=== PATIENT | female | born 1960 | race Caucasian/White ===

== ENCOUNTER 2022-07-22 05:54 | Emergency (ER) | payer OTHER ==
[~2022-07-22] VITALS: Ht 162.6 cm; Wt 102.1 kg
[2022-07-22 06:08] VITALS: BP_SYST 123
--- NOTE | 2022-07-22 06:12 | NUR ---
PT PLACED IN BED 01 & GOWN PROVIDED.
--- NOTE | 2022-07-22 06:13 | NUR ---
BIB FAMILY COMPLAINING OF 8/10 CHEST PAIN AND ABDOMINAL PAIN FOR THE PAST 4 DAYS. [id number]&[id number].[id number], NAD. AMBULATORY W/ STEADY GAIT.REPORT GIVEN TO JAMES GALAN.
--- NOTE | 2022-07-22 06:18 | NUR ---
PACHECO Purdy at bedside examining patient.
[2022-07-22] MEDS ORDERED: MORPHINE 4 MG INJ. 4 MG/ML VIAL IVP ONE ×2 (06:30→07:45)
[2022-07-22] MEDS ORDERED: KETOROLAC TROMETHAMINE 30 MG VIAL IVP ONE (06:30)
[2022-07-22] MEDS ORDERED: NACL 0.9% 1,000 ML IV ONE (06:30)
[2022-07-22] MEDS ORDERED: ONDANSETRON HCL 4 MG/2 ML VIAL IVP ONE (06:30)
[2022-07-22 06:50] LABS: BASOPHILS # (AUTO) 0.1 K/uL (0.0-0.2); BASOPHILS % (AUTO) 0.9 % (0.0-2.0); EOSINOPHILS # (AUTO) 0.4 K/uL (0.0-0.4); EOSINOPHILS % (AUTO) 3.5 % (0.0-4.0); HEMATOCRIT 33.3 % (36-48); HEMOGLOBIN 10.9 g/dL (12.0-16.0); LYMPHOCYTES # (AUTO) 2.9 K/uL (1.0-5.5); LYMPHOCYTES % (AUTO) 27.8 % (20.5-51.5); MEAN CORPUSCULAR HEMOGLOBIN 26 pg (27-31); MEAN CORPUSCULAR HGB CONC 33 % (32-36); MEAN CORPUSCULAR VOLUME 80 fL (79.0-98.0); MONOCYTES # (AUTO) 0.8 K/uL (0.0-1.0); MONOCYTES % (AUTO) 7.5 % (1.7-9.3); NEUTROPHILS # (AUTO) 6.4 K/uL (1.8-7.7); NEUTROPHILS % (AUTO) 60.3 % (40.0-70.0); PLATELET COUNT (AUTO) 361 K/uL (130-430); RED BLOOD CELL COUNT(AUTO) 4.19 MIL/uL (4.2-6.2); RED CELL DISTRIBUTION WIDTH 16.9 % (9.0-15.0); WHITE BLOOD COUNT (AUTO) 10.6 K/uL (4.8-10.8)
--- NOTE | 2022-07-22 06:55 | NUR ---
THIS IS A 61YEARS OLD FEMALE , CAME IN WITH A C/O CHEST PAIN WHICH SHE DESCRIBED 8/10. PIV STARTED ORDERED, #20, TO RIGHT HAND, MEDICATED FOR PAIN ORDERED, WILL REASSESS FOR PAIN V/S . BP123/59,MAP 83, HR67, RR25, TEMP 97.8, O2 SAT 96% ON RA. PATIENT IS PRESENTLY OFF THE FLOOR FOR CT ABD.
[2022-07-22 07:05] LABS: CALCIUM 8.4 mg/dL (8.4-11.0); CREATININE 0.78 mg/dL (0.55-1.30); POTASSIUM 3.7 mmol/L (3.5-5.1)
--- NOTE | 2022-07-22 07:10 | NUR ---
REPORT FROM FISH RAMIREZ AT THIS TIME, SHE WILL FINISH CHARTING AT THIS TIME, PATIENT ALERT AND ORIENTED X 3, COOPERATIVE, REPORTS OF CONTINUED ABDOMINAL PAIN, RESPIRATORY RATE 9 AT THIS TIME, B/P LOW WILL HOLD PAIN MEDICATION AND NOTIFY MD.
[2022-07-22 07:20] LABS: ALBUMIN 3.3 g/dL (3.4-4.8)
--- NOTE | 2022-07-22 07:28 | NUR ---
ENDORSED TO INCOMING RN TO RE ASSESS PATIENT FOR PAIN. PATIENT STABLE BP106/62,RR12 HR 59, O2SAT 97% ON RA
--- NOTE | 2022-07-22 07:46 | NUR ---
RESPIRATORY RATE LOW AT THIS TIME
--- NOTE | 2022-07-22 07:49 | NUR ---
PATIENT UPSET AT THIS TIME AND ASKING TO SPEAK TO MD BECAUSE MORPHINE HELD DUE TO LOW RESPIRATORY RATE OF 5-9, LOW HR DIPPING TO 59 AND B/P DROPPING 116 SYSTOLIC. MD NOTIFIED AND WILL SEE PATIENT.
[2022-07-22] MEDS ORDERED: NALOXONE HCL 0.4 MG/ML AMP (NARCAN) IVP ONE (08:00)
[2022-07-22] MEDS ORDERED: HYDR-3917 PO ×2 (08:12→09:08)
--- NOTE | 2022-07-22 08:22 | NUR ---
PRN NARCAN ORDERED AT THIS TIME
[2022-07-22 08:25] LABS: ERYTHROCYTE SEDIMENTATION RATE 34 MM/HR (0-20)
[2022-07-22] MEDS ORDERED: PRED20TA PO ×2 (08:52→08:55)
--- NOTE | 2022-07-22 09:01 | NUR ---
MD AT BEDSIDE TO SPEAK WITH PATIENT REGARDING POC AND DISPO. ALL QUESTIONS ANSWERED AT THIS TIME. WILL CONTINUE TO MONITOR THE PATIENT.
--- NOTE | 2022-07-22 09:09 | NUR ---
Patient states she is unable to urinate at this time, vital signs more stable, will continue to monitor the patient.
[2022-07-22 09:34] VITALS: BP_SYST 117
--- NOTE | 2022-07-22 09:37 | NUR ---
Patient given written and verbal discharge instructions and verbalizes understanding. ER MD discussed with patient the results and treatment provided. Patient in stable condition. ID arm band removed. IV catheter removed intact and dressing applied, no active bleeding. Rx of given. Patient educated on pain management and to follow up with PMD. Pain Scale . Opportunity for questions provided and answered. Medication side effect fact sheet provided.
== END 2022-07-22 09:37 | disposition home or self-care (01) ==
LOC: SED 05:54
DX: R07.89 Other chest pain (principal); R70.0 Elevated erythrocyte sedimentation rate; R10.13 Epigastric pain; R11.0 Nausea; Z79.899 Other long term (current) drug therapy
CPT/HCPCS: 99285; 74176; 96374; 96375; 96361; 80053; 83690; 85025; 85651; 84484; 36415; 93005; 76376; J1885; J2405; J2270; J7030